=== PATIENT | female | born 1940 | race Caucasian/White ===

== ENCOUNTER 2023-11-13 10:44 | Inpatient (IN) | payer MEDICARE, OTHER ==
[2023-11-13] MEDS ORDERED: Sodium Chloride 0.9% 1,000 ML IV ONE (11:08)
[2023-11-13 11:10] LABS: BASOPHILS ABSOLUTE AUTO 0.01 K/uL (0.00-0.20); BASOPHILS PERCENT AUTO 0.2 % (0.0-2.0); EOSINOPHILS ABSOLUTE AUTO 0.01 K/uL (0.00-0.50); EOSINOPHILS PERCENT AUTO 0.2 % (0.0-5.0); HEMATOCRIT 41.7 % (34.0-46.0); LYMPHOCYTES ABSOLUTE AUTO 0.85 K/uL (0.50-3.50); LYMPHOCYTES PERCENT AUTO 17.1 % (10.0-50.0); MEAN CORPUSCULAR HEMOGLOBIN 33.3 pg (28.2-33.3); MEAN CORPUSCULAR VOLUME 92.7 fL (84.0-98.0); MONOCYTES ABSOLUTE AUTO 0.94 K/uL (0.00-1.00); MONOCYTES PERCENT AUTO 18.9 % (2.0-14.0); NEUTROPHILS ABSOLUTE AUTO 3.17 K/uL (1.40-7.00); NEUTROPHILS PERCENT AUTO 63.6 % (45.0-80.0); PLATELET COUNT,PLT 133 K/uL (150-350); RED CELL DISTRIBUTION WIDTH 16.1 % (11.2-14.1)
[2023-11-13 11:29] LABS: ALANINE AMINOTRANSFERASE,ALT 27 U/L (12-78); ALBUMIN 3.5 g/dL (3.4-5.0); ALKALINE PHOSPHATASE 92 IU/L (46-116); ANION GAP 14.2 meq/L (7-15); ASPARTATE AMNIOTRANSFERASE,AST 26 U/L (15-37); BLOOD UREA NITROGEN,BUN 15 mg/dL (7-18); CALCIUM 8.8 mg/dL (8.5-10.1); CHLORIDE,CL 96 mmol/L (98-107); CREATININE 1.09 mg/dL (0.51-1.17); ESTIMATED GFR 51 mL/min (>=60); GLUCOSE RANDOM 148 mg/dL (70-99); MAGNESIUM 1.7 mg/dL (1.8-2.4); POTASSIUM,K 3.2 mmol/L (3.5-5.1); PROTEIN TOTAL,TP 6.8 g/dL (6.4-8.2); SODIUM,NA 133 mmol/L (136-145)
[2023-11-13 11:34] LABS: APPEARANCE,URINE CLOUDY; BILIRUBIN,URINE SMALL (NEGATIVE); COLOR,URINE DARK YELLOW; GLUCOSE,URINE NEGATIVE (NEGATIVE); KETONES,URINE TRACE mg/dL (NEGATIVE); LEUKOCYTE ESTERASE,URINE TRACE (NEGATIVE); NITRITE,URINE POSITIVE (NEGATIVE); OCCULT BLOOD,URINE NEGATIVE (NEGATIVE); PROTEIN,URINE 30 mg/dL (NEGATIVE); UROBILINOGEN,URINE 0.2 E.U./dL (0.2-1.0)
[2023-11-13 11:42] LABS: BACTERIA,URINE MANY /HPF (NONE TO FEW); RBC,URINE 0-5 /HPF; WBC,URINE 30-40 /HPF
[2023-11-13 12:01] LABS: CORONAVIRUS COVID-19 NAA POSITIVE (NEGATIVE); INFLUENZA A NAA NEGATIVE (NEGATIVE); INFLUENZA B NAA NEGATIVE (NEGATIVE); RESPIRATORY SYNCYTIAL VIR NAA NEGATIVE (NEGATIVE)
[2023-11-13] MEDS ORDERED: cefTRIAXone 1 GM in Sodium Chloride 0.9% 100 ML IV SCH (12:15)
[2023-11-13] MEDS ORDERED: Acetaminophen 325 MG Tab PO PRN (14:20)
[2023-11-13] MEDS ORDERED: Ondansetron 4 MG/2 ML SDV IVPUSH PRN (14:20)
[2023-11-13] MEDS ORDERED: REMDESIVIR 200 MG in Sodium Chloride 0.9% 250 ML IV ONE (14:27)
[2023-11-13] MEDS ORDERED: Potassium Bicarbonate/Cit Ac 20 MEQ Effervescent Tab PO ONE ×2 (14:33→19:00)
[2023-11-13 15:24] LABS: ALANINE AMINOTRANSFERASE,ALT 27 U/L (12-78); ALBUMIN 3.3 g/dL (3.4-5.0); ALKALINE PHOSPHATASE 90 IU/L (46-116); ANION GAP 10.1 meq/L (7-15); ASPARTATE AMNIOTRANSFERASE,AST 25 U/L (15-37); BILIRUBIN DIRECT 0.1 mg/dL (0.0-0.2); BILIRUBIN TOTAL 0.7 mg/dL (0.2-1.0); BLOOD UREA NITROGEN,BUN 14 mg/dL (7-18); CALCIUM 8.2 mg/dL (8.5-10.1); CARBON DIOXIDE,CO2 26.9 mmol/L (21.0-32.0); CHLORIDE,CL 101 mmol/L (98-107); CREATININE 0.88 mg/dL (0.51-1.17); GLUCOSE RANDOM 118 mg/dL (70-99); POTASSIUM,K 3.6 mmol/L (3.5-5.1); PROTEIN TOTAL,TP 6.5 g/dL (6.4-8.2); SODIUM,NA 138 mmol/L (136-145)
[2023-11-13] MEDS ORDERED: Sodium Chloride 0.9% 1,000 ML IV SCH (15:30)
[2023-11-13 15:35] LABS: ESTIMATED GFR 66 mL/min (>=60)
[2023-11-13] MEDS: Sodium Chloride 0.9% 10 ML Syringe FLUSH PRN ×2 (16:26→16:47)
[2023-11-13] MEDS ORDERED: Nitroglycerin 0.4 MG Tab.SL SL PRN (21:27)
[2023-11-13] MEDS: Labetalol 100 MG Tab PO SCH (22:24)
[2023-11-13] MEDS: Arformoterol 15 MCG/2 ML Neb Soln INH SCH (22:26)
[2023-11-13] MEDS: Budesonide 0.5 MG/2 ML Neb Susp NEB SCH (22:27)
[2023-11-14] MEDS: Arformoterol 15 MCG/2 ML Neb Soln INH SCH (07:24)
[2023-11-14 07:44] LABS: BASOPHILS ABSOLUTE AUTO 0.01 K/uL (0.00-0.20); BASOPHILS PERCENT AUTO 0.2 % (0.0-2.0); HEMATOCRIT 40.9 % (34.0-46.0); HEMOGLOBIN 14.4 g/dL (11.7-15.5); LYMPHOCYTES ABSOLUTE AUTO 1.09 K/uL (0.50-3.50); LYMPHOCYTES PERCENT AUTO 26.9 % (10.0-50.0); MEAN CORPUSCULAR HEMOGLOBIN 32.7 pg (28.2-33.3); MEAN CORPUSCULAR HGB CONC 35.2 g/dL (31.7-36.0); MONOCYTES ABSOLUTE AUTO 0.81 K/uL (0.00-1.00); NEUTROPHILS ABSOLUTE AUTO 2.14 K/uL (1.40-7.00); NEUTROPHILS PERCENT AUTO 52.9 % (45.0-80.0); PLATELET COUNT,PLT 127 K/uL (150-350); RED CELL DISTRIBUTION WIDTH 16.1 % (11.2-14.1); WHITE BLOOD CELL COUNT,WBC 4.1 K/uL (4.0-10.2)
[2023-11-14] MEDS: Labetalol 100 MG Tab PO SCH (07:53)
[2023-11-14] MEDS: Budesonide 0.5 MG/2 ML Neb Susp NEB SCH (07:54)
[2023-11-14] MEDS ORDERED: Polyvinyl Alcohol 1.4% Ophth Soln 15 ML Bottle EYEBOTH SCH (08:00)
[2023-11-14] MEDS ORDERED: Hydrochlorothiazide 25 MG Tab PO SCH (08:00)
[2023-11-14] MEDS ORDERED: Non-Formulary Medication 1 Each (Revefenacin [Yupelri] 175 MCG/3 ML Neb) INH SCH (08:00)
[2023-11-14 08:01] LABS: ANION GAP 9.3 meq/L (7-15); CALCIUM 8.4 mg/dL (8.5-10.1); CARBON DIOXIDE,CO2 26.7 mmol/L (21.0-32.0); CREATININE 0.85 mg/dL (0.51-1.17); EST CRCL DRUG DOSING (CG) 37.28 mL/min; MAGNESIUM 1.8 mg/dL (1.8-2.4); POTASSIUM,K 3.6 mmol/L (3.5-5.1)
[2023-11-14] MEDS ORDERED: cefTRIAXone 1 GM in Sodium Chloride 0.9% 100 ML IV ONE (10:00)
[2023-11-14] MEDS ORDERED: Take Home: Nitrofurantoin Monohydrate/Macrocrystalline 100 MG, 6 Cap Pack PO ONE (11:03)
[2023-11-14] MEDS ORDERED: REMDESIVIR 100 MG in Sodium Chloride 0.9% 100 ML IV SCH (14:45)
[2023-11-14] MEDS ORDERED: atorvaSTATin 40 MG Tab PO SCH (20:00)
[2023-11-15] MEDS ORDERED: cefTRIAXone 1 GM in Sodium Chloride 0.9% 100 ML IV ONE (10:00)
== END 2023-11-14 11:55 | disposition home or self-care (01) | DRG 689 ==
LOC: LL.ED 10:44 → LL.MS 13:00
PROVIDERS: ADMIT Emergency Medicine; ATTEND Emergency Medicine
PROC: XW033E5 Introduction of Remdesivir Anti-infective into Peripheral Vein, Percutaneous Approach, New Technology Group 5 (ICD-10-PCS; principal; 2023-11-13)
PROC: 0T9B70Z Drainage of Bladder with Drainage Device, Via Natural or Artificial Opening (ICD-10-PCS; 2023-11-13)
DX: U07.1 COVID-19 (principal); R55 Syncope and collapse; N30.00 Acute cystitis without hematuria; C34.90 Malignant neoplasm of unspecified part of unspecified bronchus or lung; E86.0 Dehydration; E87.6 Hypokalemia; Z66 Do not resuscitate; Z51.5 Encounter for palliative care; J44.9 Chronic obstructive pulmonary disease, unspecified; I10 Essential (primary) hypertension; H04.123 Dry eye syndrome of bilateral lacrimal glands; E87.5 Hyperkalemia; Z91.030 Bee allergy status; Z91.018 Allergy to other foods; Z91.041 Radiographic dye allergy status; Z79.899 Other long term (current) drug therapy; Z79.01 Long term (current) use of anticoagulants
CPT/HCPCS: 0241U; 36415; 70450; 71045; 80048; 80053; 81001; 82248; 83605; 83735; 85025; 87086; 87088; 93005; 96361; 96365; 99285; 87186; 93010; A9270-GY; J0248; J0696; J3475; J3490; J7030; J7050